=== PATIENT | female | born 1975 | race Caucasian/White ===

== ENCOUNTER 2022-03-18 09:56 | Outpatient (CLI) | payer OTHER, SELFPAY ==
[2022-03-18 14:20] LABS: Albumin* 4.4 g/dL (3.3-5.0)
[2022-03-18 14:21] LABS: Chloride* 104 mmol/L (96-114); Potassium* 4.4 mmol/L (3.6-5.1); Sodium* 139 mmol/L (135-149)
[2022-03-18 14:23] LABS: Cholesterol* 193 mg/dL (90-199); Creatinine* 0.6 mg/dL (0.5-1.5); Estimated Glomerular Filt Rate 111 ml/min
[2022-03-18 14:24] LABS: Alanine Aminotransferase* 13 U/L (4-35); Alkaline Phosphatase* 45 U/L (40-150); Aspartate Amino Transferase* 20 U/L (12-35); Bilirubin Total* 0.7 mg/dL (0.1-1.5); Blood Urea Nitrogen* 19 mg/dL (5-24); Carbon Dioxide* 28 mmol/L (20-32); Glucose* 92 mg/dL (60-115); Triglycerides* 48 mg/dL (40-149)
[2022-03-18 14:25] LABS: Calcium* 8.9 mg/dL (8.4-10.6); HDL Cholesterol* 83 mg/dL (>=50); LDL Cholesterol Calculated 100 mg/dL (<100)
== END 2022-03-18 09:57 | disposition home or self-care (01) ==
PROVIDERS: PCP Physician Assistant Medical; Visit Provider Physician Assistant Medical
DX: Z00.00 Encounter for general adult medical examination without abnormal findings (principal); Z13.6 Encounter for screening for cardiovascular disorders
CPT/HCPCS: 80053; 80061

== ENCOUNTER 2022-05-04 12:59 | Outpatient (CLI) | payer OTHER, SELFPAY ==
--- NOTE | 2022-05-04 13:20 | CRLHL7_ITS ---
For Patients: As a result of the Century Cures Act, medical imaging exams and procedure reports are released immediately into your electronic medical record. You may view this report before your referring provider. If you have questions, please contact your health care provider. BILATERAL SCREENING MAMMOGRAM WITH COMPUTER-AIDED DETECTION AND TOMOSYNTHESIS TECHNIQUE: CC and MLO views were obtained. These mammographic images have been obtained using full-field digital technique. These mammographic images were interpreted with the benefit of computer-aided detection. Breast tomosynthesis was used in this interpretation. COMPARISON FILM: 04/30/21, 04/09/20, 02/19/19. FINDINGS: The breasts are heterogeneously dense, which may obscure small masses. IMPRESSION: There is no radiographic evidence for malignancy. ASSESSMENT: BI-RADS Category 1: Negative RECOMMENDATION: Routine screening mammogram in 1 year. A lay language report of this examination will be provided to the patient. JERO HOLLEY M.D. Diagnostic Radiologist [email or web address] Transcribed: 6:[address]/Dictated by: Jero Holley MD @ 05/05/2022 9:24:00 AM (Electronically Signed)
== END 2022-05-04 13:00 | disposition home or self-care (01) ==
LOC: MAMMO 12:59
PROVIDERS: PCP Physician Assistant Medical; Visit Provider Physician Assistant Medical
DX: Z12.31 Encounter for screening mammogram for malignant neoplasm of breast (principal); R92.2 Inconclusive mammogram
CPT/HCPCS: 77063; 77067

== ENCOUNTER 2023-05-06 08:59 | Outpatient (CLI) | payer OTHER, SELFPAY | END 2023-05-06 09:00 | disposition home or self-care (01) | LOC: NFLDREF 05-17 16:14 | PROVIDERS: PCP Physician Assistant Medical; Referring Provider Physician Assistant Medical; Visit Provider Physician Assistant Medical | DX: Z00.00 Encounter for general adult medical examination without abnormal findings (principal); D72.819 Decreased white blood cell count, unspecified; Z11.3 Encounter for screening for infections with a predominantly sexual mode of transmission; Z13.6 Encounter for screening for cardiovascular disorders; Z13.1 Encounter for screening for diabetes mellitus | CPT/HCPCS: 80053; 80061 ==

== ENCOUNTER 2023-05-12 13:16 | Outpatient (CLI) | payer OTHER, SELFPAY ==
[2023-05-12 23:42] LABS: Chlamydia DNA Amplified* NOT DETECTED (No Detected); GC DNA Amplified* NOT DETECTED (No Detected)
== END 2023-05-12 13:17 | disposition home or self-care (01) ==
PROVIDERS: PCP Physician Assistant Medical; Visit Provider Physician Assistant Medical
DX: Z11.3 Encounter for screening for infections with a predominantly sexual mode of transmission (principal)
CPT/HCPCS: 87491; 87591

== ENCOUNTER 2023-05-19 08:29 | Outpatient (CLI) | payer OTHER, SELFPAY ==
--- NOTE | 2023-05-19 08:45 | CRLHL7_ITS ---
For Patients: As a result of the Cures Act, medical imaging exams and procedure reports are released immediately into your electronic medical record. You may view this report before your referring provider. If you have questions, please contact your health care provider. BILATERAL SCREENING MAMMOGRAM WITH COMPUTER-AIDED DETECTION AND TOMOSYNTHESIS TECHNIQUE: CC and MLO views were obtained. These mammographic images have been obtained using full-field digital technique. These mammographic images were interpreted with the benefit of computer-aided detection. Breast Tomosynthesis was used in this interpretation. COMPARISON FILM: 05/04/22, 04/30/21, 04/09/20. FINDINGS: The breasts are heterogeneously dense, which may obscure small masses IMPRESSION: There is no radiographic evidence for malignancy. ASSESSMENT: BI-RADS Category 1: Negative RECOMMENDATION: Routine screening mammogram in 1 year. A lay language report of this examination will be provided to the patient. RALPH CANTU M.D. Diagnostic/Nuclear Medicine Radiologist [email or web address] NELDAN:marita Transcribed: 2:58 p.mAngi kirkland/Dictated by: Ralph Cantu MD @ 05/19/2023 9:16:00 AM (Electronically Signed)
== END 2023-05-19 08:30 | disposition home or self-care (01) ==
LOC: MAMMO 08:30
PROVIDERS: PCP Physician Assistant Medical; Visit Provider Physician Assistant Medical
DX: Z12.31 Encounter for screening mammogram for malignant neoplasm of breast (principal); R92.2 Inconclusive mammogram
CPT/HCPCS: 77063; 77067

== ENCOUNTER 2023-05-23 10:44 | Outpatient (CLI) | payer OTHER, SELFPAY ==
--- NOTE | 2023-05-23 11:00 | CRLHL7_ITS ---
For Patients: As a result of the Century Cures Act, medical imaging exams and procedure reports are released immediately into your electronic medical record. You may view this report before your referring provider. If you have questions, please contact your health care provider. INDICATION: Dysmenorrhea TECHNIQUE: Transabdominal and transvaginal scanning was performed. Transvaginal scanning was performed to optimally evaluate the endometrium and adnexa. Ovarian blood flow was evaluated with color-flow and pulsed Doppler. COMPARISON: None. FINDINGS: The uterus is normal in size and shape. The uterus measures 8.6 x 5.1 x 4.7 cm. An echogenic, possibly partially calcified cervical fibroid measuring 1.5 x 1.4 x 1.1 cm appears to be present on the right. The endometrial stripe is normal in thickness at 8 mm. The ovaries are normal in appearance. The right ovary measures 2.7 x 1.5 x 1.4 cm and left 2.3 x 1.9 x 1.3 cm. Ovarian blood flow is demonstrated with color-flow and pulsed Doppler. No adnexal mass is evident. No free fluid is demonstrated. IMPRESSION: Negative pelvic ultrasound except for echogenic, possibly partially calcified cervical fibroid measuring 1.5 x 1.4 x 1.1 cm. Dictated by Sotero Cevallos MD @ 05/23/2023 3:32:33 PM (Electronically Signed)
== END 2023-05-23 10:45 | disposition home or self-care (01) ==
LOC: US 10:44
PROVIDERS: PCP Physician Assistant Medical; Visit Provider Physician Assistant Medical
DX: N94.6 Dysmenorrhea, unspecified (principal); N84.1 Polyp of cervix uteri
CPT/HCPCS: 76830; 76856

== ENCOUNTER 2024-05-17 08:11 | Outpatient (CLI) | payer OTHER, SELFPAY | END 2024-05-17 08:12 | disposition home or self-care (01) | PROVIDERS: PCP Physician Assistant Medical; Referring Provider Physician Assistant Medical; Visit Provider Physician Assistant Medical | DX: Z13.220 Encounter for screening for lipoid disorders (principal); Z13.228 Encounter for screening for other metabolic disorders | CPT/HCPCS: 80053; 80061 ==

== ENCOUNTER 2024-05-23 14:18 | Outpatient (CLI) | payer OTHER, SELFPAY ==
--- NOTE | 2024-05-23 14:40 | CRLHL7_ITS ---
For Patients: As a result of the Century Cures Act, medical imaging exams and procedure reports are released immediately into your electronic medical record. You may view this report before your referring provider. If you have questions, please contact your health care provider. BILATERAL SCREENING MAMMOGRAM WITH COMPUTER-AIDED DETECTION AND TOMOSYNTHESIS TECHNIQUE: CC and MLO views were obtained. These mammographic images have been obtained using full-field digital technique. These mammographic images were interpreted with the benefit of computer-aided detection. Breast Tomosynthesis was used in this interpretation. COMPARISON FILM: 05/19/23, 05/04/22, 04/30/21. FINDINGS: The breasts are heterogeneously dense, which may obscure small masses IMPRESSION: There is no radiographic evidence for malignancy. ASSESSMENT: BI-RADS Category 1: Negative RECOMMENDATION: Routine screening mammogram in 1 year. A lay language report of this examination will be provided to the patient. Jero Mei M.D. Diagnostic Radiologist [email or web address] RONNIE/[email or web address] Transcribed: 3:36 p.mAngi kirkland/Dictated by: Jero Mei MD @ 05/24/2024 12:00:00 PM (Electronically Signed)
== END 2024-05-23 14:19 | disposition home or self-care (01) ==
LOC: MAMMO 14:19
PROVIDERS: PCP Physician Assistant Medical; Visit Provider Physician Assistant Medical
DX: Z12.31 Encounter for screening mammogram for malignant neoplasm of breast (principal); R92.333 Mammographic heterogeneous density, bilateral breasts
CPT/HCPCS: 77063; 77067